=== PATIENT | female | born 1955 | race Caucasian/White ===

== ENCOUNTER → 2021-03-04 11:51 | Outpatient (BNVA) | payer MEDICARE, OTHER, SELFPAY | PROVIDERS: Referring Provider Physician Assistant Medical; Visit Provider Orthopaedic Surgery | DX: M25.511 Pain in right shoulder (principal) | CPT/HCPCS: 73030 ==

== ENCOUNTER 2021-03-19 11:33 | Outpatient (RCR) | payer MEDICARE, OTHER, SELFPAY | END 2021-04-01 23:59 | disposition home or self-care (01) | LOC: SPT 11:33 | PROVIDERS: PCP Physician Assistant Medical; Visit Provider Orthopaedic Surgery | DX: M75.01 Adhesive capsulitis of right shoulder (principal) | CPT/HCPCS: 97161 ==

== ENCOUNTER 2021-05-26 06:56 | Outpatient (CLI) | payer MEDICARE, OTHER, SELFPAY ==
--- NOTE | 2021-05-26 07:15 | USCV_ITS ---
Zeenat Ballard Age: 65 Gender: F : 1955 Exam Date: 05/26/2021 07:10 Ordering Phys: Callie Haddad MD ([email or web address]) Technologist: BOO Exam Location: [facility] [place] Indication: Patient states that she has cardiomyopathy, cannot recall type. Patient denies shortness of breath. No hx cardiac intervention. BP: 130 / 70 HR: 61 Rhythm: Sinus Technical Quality: Adequate MEASUREMENTS (Male / Female) Normal Values 2D ECHO LV Diastolic Diameter PLAX 4.9 cm 4.2 - 5.9 / 3.9 - 5.3 cm LV Systolic Diameter PLAX 3.2 cm IVS Diastolic Thickness 1.1 cm 0.6 - 1.0 / 0.6 - 0.9 cm IVS Systolic Thickness 1.5 cm LVPW Diastolic Thickness 1.3 cm 0.6 - 1.0 / 0.6 - 0.9 cm LVPW Systolic Thickness 1.5 cm LVOT Diameter 1.9 cm LV Ejection Fraction 2D Teich 64.6 % LV Ejection Fraction MOD 2C 72.5 % LV Ejection Fraction 2C AL 72.5 % LA Diameter 3.7 cm LA Width 4.3 cm LA Height 5.9 cm RA Width 3.0 cm RA Height 4.4 cm Aorta at Sinotubular Diameter 2.7 cm M-MODE Aortic Annulus Diameter 2.7 cm LA Ao Ratio MM 1.4 MV E Point Septal Separation 0.5 cm DOPPLER AV Peak Velocity 120.0 cm/s LVOT Peak Velocity 80.0 cm/s AV Area Cont Eq vti 2.0 cm squared AV Area Cont Eq pk 1.8 cm squared MV Area PHT 3.5 cm squared Mitral E to A Ratio 1.5 MV E' Velocity 54.5 cm/s Mitral E to MV E' Ratio 9.2 Mitral E to LV E' Lateral Ratio 8.1 Mitral E to LV E' Septal Ratio 10.8 TR Peak Velocity 243.0 cm/s TR Peak Gradient 23.6 mmHg TV Peak E Velocity 49.0 cm/s Right Atrial Pressure 5.0 mmHg Pulmonary Artery Systolic Pressu 28.6 mmHg PV Peak Velocity 79.0 cm/s RV Acceleration Time 0.2 s RV Ejection Time 0.4 s RV AcT/ET 0.4 FINDINGS Left Ventricle Normal LV size with diminished ejection fraction of 45 to 50% . diffuse hypokinesia of the left ventricle Right Ventricle The right ventricle is normal in size and function. Right Atrium Mildly increased right atrial size. Left Atrium Mildly increased left atrial size. Mitral Valve Thickened mitral valve. Moderate mitral valve regurgitation. Aortic Valve Thickened aortic valve. Trace aortic valve regurgitation. Tricuspid Valve Trace to mild tricuspid valve regurgitation. Pulmonic Valve Trace to mild pulmonary valve regurgitation. Pericardium Normal pericardium without effusion. Aorta Normal ascending aorta dimension. CONCLUSIONS Normal LV size with diminished ejection fraction of 45 to 50% . Diffuse hypokinesia of the left ventricle. Thickened mitral valve. Moderate mitral valve regurgitation. Thickened aortic valve. Trace aortic valve regurgitation. Trace to mild tricuspid valve regurgitation. Trace to mild pulmonary valve regurgitation. Mild biatrial enlargement Estimated pulmonary artery peak systolic pressure 29 mm of Hg There is no pericardial effusion. There are no intracardiac masses. Dr Ghazala Maldonado MD FAC (Electronically Signed) Final Date: 26 May 2021 23:21 S
== END 2021-05-26 06:57 | disposition home or self-care (01) ==
LOC: RAD 06:58
PROVIDERS: PCP Physician Assistant Medical; Visit Provider Internal Medicine Cardiovascular Disease
DX: I42.9 Cardiomyopathy, unspecified (principal); I08.3 Combined rheumatic disorders of mitral, aortic and tricuspid valves
CPT/HCPCS: 93306

== ENCOUNTER 2021-06-02 06:07 | Day surgery (SDC) | payer MEDICARE, OTHER, SELFPAY ==
[2021-05-29 13:47] VITALS: BMI 39.3
[2021-06-02 06:33] VITALS: BP 127/83; PULSE 67; RESP 18; TEMP 36.1; O2SAT 97
[2021-06-02] MEDS: sodium chloride 0.9% 1,000 ML 30 ML IV (06:43)
--- NOTE | 2021-06-02 06:46 | ANES.PREANE2 ---
Pre-Anesthetic Assessment Height/Weight: Height 1.57 m Weight 97.522 kg Temp Pulse Resp BP Pulse Ox 97 F L 67 18 127/83 97 06/02/21 06:33 06/02/21 06:33 06/02/21 06:33 06/02/21 06:33 06/02/21 06:33 Preop Diagnosis: Screening Operation Date: 06/02/21 07:00 Proposed Procedures p EGD/Colon 15967 K52.9(Not Applicable) - Felipe Weinstein MD s Colonoscopy 98434 G0121 Z12.11(Not Applicable) - Felipe Weinstein MD Was Beta Ale taken within 24 hours: Yes Was Clonidine taken within 24 hours: N/A Last intake: Intake Last Liquid Date 06/01/21 Last Liquid Time 20:00 Last Solid Date 05/31/21 Last Solid Time 17:30 Social No alcohol and No tobacco Exam alert and oriented x 3 Airway Submandibular: within normal limits Cervical ROM: within normal limits Mallampati: Class IV Dentition: full History/ROS No significant history except as noted Pulmonary None reported CV/HEM Hypertension None reported Hepatic None reported GI None reported Metabolic Diabetes Mellitus and Hyperlipidemia [facility] [place] None reported Neuropsych None reported Anesthetic Plan ASA status: 2 Anesthesia: Anesthesia Evaluation and MAC Risk of > 500 ml blood loss (7ml/kg in children): No Medications/Allergies Home Medications Medication Instructions Recorded Confirmed Last Taken Type carvedilol 25 mg tablet (Coreg) 25 mg PO BID 03/04/21 05/29/21 06/02/21 04:30 History pioglitazone 15 mg tablet (Actos) 15 mg PO DAILY 03/04/21 05/29/21 05/31/21 History rosuvastatin 20 mg tablet 20 mg PO DAILY 03/04/21 05/29/21 05/31/21 History glipizide 10 mg tablet 10 mg PO DAILY 05/29/21 05/29/21 05/31/21 History Allergies Allergy/AdvReac Type Severity Reaction Status Date / Time metformin Allergy Severe ADR-Diarrhe Uncoded 06/02/21 06:49 a [facility] Anesthesia Family History Mother Cancer Stomach Father Dementia Brother Hypertension Sister Hypertension Other Diabetes Social History Smoking and tobacco status: never smoked Alcohol intake: never Data Anesthesia Cardiac Studies: Echocardiogram 05/26/21
--- NOTE | 2021-06-02 07:23 | PM.PN ---
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
--- NOTE | 2021-06-02 07:24 | P.HP_ITS ---
Same Day Surgery H&P Indication for Procedure/HPI DATE OF PROCEDURE: June 02, 2021 CHIEF COMPLAINT/INDICATIONFOR SURGICAL PROCEDURE: Diarrhea PREOP DIAGNOSIS: Screening PLANNED PROCEDURE: Operation Date: 06/02/21 07:00 Proposed Procedures p EGD/Colon 32641 K52.9(Not Applicable) - Felipe Weinstein MD s Colonoscopy 56887 G0121 Z12.11(Not Applicable) - Felipe Weinstein MD Medications/Allergies* Home Medications Medication Instructions Recorded Confirmed Type carvedilol 25 mg tablet (Coreg) 25 mg PO BID 03/04/21 05/29/21 History pioglitazone 15 mg tablet (Actos) 15 mg PO DAILY 03/04/21 05/29/21 History rosuvastatin 20 mg tablet 20 mg PO DAILY 03/04/21 05/29/21 History glipizide 10 mg tablet 10 mg PO DAILY 05/29/21 05/29/21 History Allergies/Adverse Reactions Allergy/AdvReac Type Severity Reaction Status Date / Time metformin Allergy Severe ADR-Diarrhe Uncoded 06/02/21 06:49 a Current Medications: Generic Name Dose Route Start Last Admin Trade Name Freq PRN Reason Stop Dose Admin Sodium Chloride 1,000 mls @ 30 mls/hr 06/02/21 06:15 06/02/21 06:43 Sodium Chloride 0.9% IV 06/03/21 06:14 30 mls/hr .Q24H MELL Administration Pertinent History/Comorbid Conditions* Family History (Updated 03/12/21 @ 13:37 by Anjali Mendoza RN) Diabetes Dementia Father Cancer Mother Stomach Hypertension Brother Sister Social History Smoking and tobacco status: never smoked Alcohol intake: never Pertinent Exam Findings alert, oriented x 3, clear to auscultation bilaterally, regular rate & rhythm, operative site marked and procedure specific exam findings Recommendations Surgery/Procedure today 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
[2021-06-02 07:42] VITALS: BP 111/60; PULSE 71; RESP 16; TEMP 36.5; O2SAT 91
[2021-06-02 07:51] VITALS: BP 117/79; PULSE 68; RESP 18; O2SAT 98
--- NOTE | 2021-06-02 13:43 | ANE.PACU2 ---
Inpatient post-anesthesia follow up: Airway intact: Yes Vital signs: Temperature 97.7 F Pulse Rate 68 Respiratory Rate 18 Blood Pressure 117/79 Pulse Oximetry 98 Oxygen Delivery Me thod Room Air Oxygen Flow Rate 3 Fraction of Inspir ed Oxygen Hydration adequate: Yes Nausea and vomiting: No Pain level: 1 Mental status: Baseline
[2021-06-04 09:10] LABS: H. Pylori / CLO Test Negative
== END 2021-06-02 08:16 | disposition home or self-care (01) ==
PROVIDERS: PCP Physician Assistant Medical; Visit Provider Internal Medicine
PROC: 0DJ08ZZ Inspection of Upper Intestinal Tract, Via Natural or Artificial Opening Endoscopic (ICD-10-PCS; CPT 43235; principal; 2021-06-02 07:00)
PROC: 0DJD8ZZ Inspection of Lower Intestinal Tract, Via Natural or Artificial Opening Endoscopic (ICD-10-PCS; CPT 45378; 2021-06-02 07:00)
DX: Z12.11 Encounter for screening for malignant neoplasm of colon (principal); Z82.49 Family history of ischemic heart disease and other diseases of the circulatory system; Z83.3 Family history of diabetes mellitus; K29.70 Gastritis, unspecified, without bleeding; I10 Essential (primary) hypertension; E11.9 Type 2 diabetes mellitus without complications; E78.5 Hyperlipidemia, unspecified
CPT/HCPCS: 43239; 87077; G0121; J2704; J7030

== ENCOUNTER → 2021-09-17 13:54 | Outpatient (BNVA) | payer MEDICARE, OTHER, SELFPAY | PROVIDERS: PCP Physician Assistant Medical; Visit Provider Internal Medicine Cardiovascular Disease | DX: I42.8 Other cardiomyopathies (principal); I10 Essential (primary) hypertension | CPT/HCPCS: 99214 ==

== ENCOUNTER 2021-10-23 09:28 | Observation (INO) | payer MEDICARE, OTHER, SELFPAY ==
[2021-10-16 14:21] LABS: Basophils % 0.5 %; Eosinophils # 0.1 10^3/uL (0.0-0.8); Eosinophils % 1.2 %; Hematocrit 38.3 % (37.0-47.0); Hemoglobin 12.8 g/dL (11.5-15.3); Lymphocytes # 3.2 10^3/uL (0.8-4.8); Lymphocytes % 55.8 %; Mean Corpuscular HGB Conc 33.4 g/dL (30.0-36.0); Mean Corpuscular Hemoglobin 31.1 pg (28.0-34.0); Mean Corpuscular Volume 93.2 fl (81-99); Mean Platelet Volume 10.3 fL (7.4-10.4); Monocytes # 0.4 10^3/uL (0.2-0.9); Monocytes % 7.7 %; Neutrophils # 1.99 10^3/uL (1.8-7.7); Neutrophils % 34.6 %; Nucleated Red Blood Cells % 0 %; Platelet Count 191 10^3/cmm (130-400); Red Blood Count 4.11 10^6/uL (4.1-5.3); Red Cell Distribution Width 14.1 % (12.1-15.1); White Blood Count 5.8 10^3/uL (4.0-10.0)
[2021-10-16 14:37] LABS: INR 0.94 (0.83-1.21); Prothrombin Time (Patient) 12.9 Seconds (12.0-15.1)
[2021-10-16 14:45] LABS: Anion Gap 10.2 (5-19); Blood Urea Nitrogen 17 mg/dL (8-23); Calcium 9.5 mg/dL (8.5-10.5); Carbon Dioxide 31 mmol/L (22-29); Chloride 103 mmol/L (98-107); Glucose 173 mg/dL (65-115); Osmolality Calculated 294 mOsm/kg (285-295); Potassium 5.2 mmol/L (3.5-5.1); Sodium 139 mmol/L (136-145)
[2021-10-23] VITALS (7 sets, daily range): BP systolic 119–139; BP diastolic 59–65; PULSE 59–62; RESP 15–20; TEMP 36.7; O2SAT 97–98; BMI 42.4
--- NOTE | 2021-10-23 07:30 | XACV_ITS ---
Exam Room: 2 Ht: 157 cm Wt: 105 kg BSA: 2.21 m2 Gender: Female : 1955 Any Known Allergies: Other Exam Priority: Routine Procedure(s): Procedure Description: Diagnostic procedure Procedure Description: Left Heart Catheterization Procedure Description: Coronary Angiography Diagnostic Cath Status: Elective Diagnostic Findings * 65-year-old female past medical history significant for diabetes mellitus, hypertension and CHF. According the patient in 2004, she was diagnosed with severely depressed ejection fraction cardiomyopathy and was started on optimal medical regimen. Stress test was performed as per patient I do not have any record. Since then, her heart function improved to 60%. Recent echo showed mildly decreased left ventricle systolic function with ejection fraction of 45 to 50%. I decided to proceed with cardiac catheterization.. * No disease noted in the Left Main, Left Anterior Descending, Right, or Circumflex coronary arteries. * Coronary angiography shows left dominance. Conclusions 1. No disease noted in the Left Main, Left Anterior Descending, Right, or Circumflex coronary arteries. Recommendations * Continue current medical management and risk factor modification. LV EDP: 15 mmHg Left Ventriculography Findings: * Left Ventriculogram not performed to minimize contrast use. Pressures Phase:Rest AO : 114 / 62 ( 83 ) @ 9:50:00 AM LV : 117 / -2 / 15 @ 9:49:00 AM Clinical Evaluation EBL: 5mL-10mL Procedural Details Procedure Consent Obtained. Admit Source: Out Patient. Pre-Procedure Time Out. Identified patient by full name and date of as verbalized by the patient/guarantor. Does the consent match the physician's order: Yes. Accurate & Complete Informed Consent: Yes. Inpatient/Outpatient History & Physical on Chart: Yes. If H&P is completed, is and addenduem needed: No; If yes, is the addendum complete: N/A. Visualize and Verify Site with Patient/Guarantor: N/A. Relevant Radiology Images available: No. The risks, benefits, and alternatives of sedation and/or procedure were discussed by physician. The patient agrees to continue. Procedure started. [facility] Clinical Fraility Score: 3: Managing Well. Teacher Physically Impaired Indications: Cardiomyopathy. Chest Pain Symptom Assessment: Asymptomatic. Correct patient, site and procedure confirmed by cath team. PERRLA. Strong, equal hand business operations analyst bilaterally. Lungs clear x 5 lobes. IV Site on Arrival: 20 gauge in the right anticubital. IV Fluids: 0.9% NaCl at KVO. 0 mL infused prior to lab nurse. Pre Procedural Pulses: bilateral posterior tibial was 1+. Pre Procedural Pulses: bilateral dorsalis pedis was 2+. Pre Procedural Pulses: bilateral radial was 3+. Oxygen started at 2liters/min via nasal canula. right radial was prepped with chloroprep then draped in the usual sterile fashion. right groin was prepped with chloroprep then draped in the usual sterile fashion. Baseline sample Acquired. HR: 69 BPM. Physician notified. Physician scrubbed in. Immediate Pre-Procedure Time Out. Correct Patient: Yes; Correct Procedure: Yes; Correct Site: Yes; Correct Patient Position: Yes; Correct Supplies: Yes; Dried Flammable Prep: Yes; Blood Products Available: No;. Physician arrived. Lidocaine 1% infiltrated to the right radial. Arterial access obtained. A 5 albanian TIG catheter in over wire. EDP Sample taken: LV 117/-3,15; HR: 65 BPM; SpO2: 100%. Multiple views taken of left coronary artery. Catheter redirected to the RCA. Multiple views taken of right coronary artery. Post Procedure: Pulses reassessed and unchanged. PERRLA. Strong, equal hand business operations analyst bilaterally. No VTE prophylaxis required. Medication's Wasted: Lidocaine 1% = 4 mL. Medication's Wasted: Nitro = 49.8 mg. Medication's Wasted: Heparin = 1000 unit. Total IV fluids: 22 mL. Post-op diagnosis: Non-obstructive CAD. A TR Band was successful obtaining hemostatsis at the Right Radial artery insertion site. Complications: None. Estimated blood loss: 5mL-10mL. Responsiveness - Normal response to verbal stimuli; alert and oriented, PERRLA. Airway - Unaffected, no intervention required; spontaneous ventilation. Circulation: W/N/L, pulses unchanged. Nausea/Vomiting: N/A. Procedure completed. Patient transferred by wheelchair to ICU. Access Site Site: Right Radial artery Sheath Size: 6 Fr Hemostasis Method: TR Band Hemostasis Success: Successful Procedure Medications Start: 8:39 AM Stop: 8:39 AM Medication: Versed Amount: 1 mg Route: I.V. Start: 8:40 AM Stop: 8:40 AM Medication: Fentanyl Amount: 50 mcg Route: I.V. Start: 8:44 AM Stop: 8:44 AM Medication: Versed Amount: 1 mg Route: I.V. Start: 8:47 AM Stop: 8:47 AM Medication: Nitrogylcerin Amount: 200 mcg Route: I.A. Start: 8:50 AM Stop: 8:50 AM Medication: Heparin Amount: 5000 units Route: I.V. Start: 8:52 AM Stop: 8:52 AM Medication: Versed Amount: 1 mg Route: I.V. I, the attending physician, have reviewed and verified all procedure medications. Yes, all medications given per verbal order History/Risk Factors Hypertension: Yes Dyslipidemia: Yes Peripheral Arterial Disease (PAD): No Myocardial Infarction ([place]): No Obesity: Yes Renal Disease: No Tobacco Use: Never Prior Interventions PCI: No CABG: No Valve Surgery: No Report Signatures Finalized by Bárbara Flores MD on 10/23/2021 09:14 AM
[2021-10-23] MEDS: diphenhydrAMINE 50 mg Capsule PO (07:45)
--- NOTE | 2021-10-23 08:32 | W.PM.OPSUD ---
Surgery/Procedure H&P Update DATE OF PROCEDURE: October 23, 2021 DATE H&P PERFORMED: 09/17/21 H&P UPDATE INFORMATION: I have reviewed H&P completed within last 30 days, I have examined patient prior to procedure and No changes to prior documentation PREOP DIAGNOSIS: Cardiomyopathy PRIMARY INDICATION FOR PROCEDURE: Cardiomyopathy PLANNED PROCEDURE: Operation Date: 10/23/21 08:30 Proposed Procedures p Cardiac Catheterization(Left) - Bárbara Flores MD PATIENT REASSESSED PRIOR TO SEDATION, WITH NO CHANGE NOTED: Yes PHYSICAL EXAM: alert, oriented x 3, clear to auscultation bilaterally and regular rate & rhythm AIRWAY EVAL/ANESTHESIA PLAN: normal airway, ASA III, Monitored Anesthesia, Local Anesthesia, Risks, benefits & alternatives of sedation and/or procedure discussed and Patient agrees to continue as planned
--- NOTE | 2021-10-23 16:10 | PC.NURSE ---
Discharge instructions given to patient and , IV removed. TR band removed several hours ago (dressing c/d/i). Patient and belongings wheeled to private vehicle accompanied by .
--- NOTE | 2021-10-24 15:41 | W.PM.OPSFHP ---
Same Day Surgery H&P Indication for Procedure/HPI DATE OF PROCEDURE: October 23, 2021 CHIEF COMPLAINT/INDICATIONFOR SURGICAL PROCEDURE: Cardiomyopathy with decrease in LV function, Multiple CAD risk factors PREOP DIAGNOSIS: Cardiomyopathy PLANNED PROCEDURE: Operation Date: 10/23/21 08:30 Proposed Procedures p Cardiac Catheterization(Left) - Bárbara Flores MD 65-year-old female past medical history significant for diabetes mellitus, hypertension and CHF.? According the patient in 2004, she was diagnosed with severely depressed ejection fraction cardiomyopathy and was started on optimal medical regimen. Stress test was performed as per patient I do not have any record.? Since then, her heart function improved to 60% per patient.? Recent echo showed mildly decreased left ventricle systolic function with ejection fraction of 45 to 50%.? I decided to proceed with cardiac catheterization.. Medications/Allergies* Home Medications Medication Instructions Recorded Confirmed Type carvedilol 25 mg tablet (Coreg) 25 mg PO BID 03/04/21 10/22/21 History pioglitazone 15 mg tablet (Actos) 15 mg PO DAILY 03/04/21 10/22/21 History glipizide 10 mg tablet 10 mg PO DAILY 05/29/21 10/22/21 History atorvastatin 80 mg tablet 80 mg PO DAILY 09/17/21 10/22/21 History aspirin 325 mg tablet 325 mg PO DAILY 10/22/21 10/22/21 History Allergies/Adverse Reactions Allergy/AdvReac Type Severity Reaction Status Date / Time metformin Allergy Severe ADR-Diarrhe Uncoded 06/02/21 06:49 a Pertinent History/Comorbid Conditions* Medical History (Updated 09/20/21 @ 11:41 by Bárbara Flores MD) Diabetes History of endometrial cancer Hypercholesteremia Surgical History (Updated 09/17/21 @ 14:17 by Bárbara Flores MD) S/P cholecystectomy S/P hernia surgery S/P hysterectomy Family History (Updated 03/12/21 @ 13:37 by Anjali eMndoza RN) Diabetes Dementia Father Cancer Mother Stomach Hypertension Brother Sister Social History Smoking and tobacco status: never smoked Alcohol intake: never Pertinent Exam Findings alert, oriented x 3, clear to auscultation bilaterally and regular rate & rhythm Conscious Sedation Assessment PATIENT ASSESSED PRIOR TO SEDATION, WITH NO CHANGE NOTED: Yes AIRWAY EVAL/ANESTHESIA PLAN: normal airway, ASA III, Monitored Anesthesia, Local Anesthesia, Risks, benefits & alternatives of sedation and/or procedure discussed and Patient agrees to continue as planned Recommendations Surgery/Procedure today 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
== END 2021-10-23 16:01 | disposition home or self-care (01) ==
LOC: ICU 09:29
PROVIDERS: Admitting Provider Internal Medicine Cardiovascular Disease; PCP Physician Assistant Medical; Visit Provider Internal Medicine Cardiovascular Disease
DX: I42.9 Cardiomyopathy, unspecified (principal); I11.0 Hypertensive heart disease with heart failure; I50.9 Heart failure, unspecified; E11.9 Type 2 diabetes mellitus without complications; Z85.89 Personal history of malignant neoplasm of other organs and systems; E78.00 Pure hypercholesterolemia, unspecified
CPT/HCPCS: 36415; 80048; 85025; 85610; 93452; 96360; 99152; C1769; C1887; C1894; G0378; J1644; J2250; J3010; J3490; J7030; Q0163; Q9967

== ENCOUNTER → 2021-11-07 10:12 | Outpatient (BNVA) | payer MEDICARE, OTHER, SELFPAY | PROVIDERS: PCP Physician Assistant Medical; Visit Provider Nurse Practitioner Family | DX: Z09 Encounter for follow-up examination after completed treatment for conditions other than malignant neoplasm (principal); I10 Essential (primary) hypertension | CPT/HCPCS: 36415; 80048; 99213; 99214 ==

== ENCOUNTER → 2021-12-09 09:55 | Outpatient (BNVA) | payer MEDICARE, OTHER, SELFPAY | PROVIDERS: PCP Physician Assistant Medical; Visit Provider Internal Medicine Cardiovascular Disease | DX: I42.8 Other cardiomyopathies (principal); I10 Essential (primary) hypertension; E78.00 Pure hypercholesterolemia, unspecified; E11.9 Type 2 diabetes mellitus without complications; Z79.84 Long term (current) use of oral hypoglycemic drugs | CPT/HCPCS: 99213; 99214 ==